=== PATIENT | female | born 1990 | race Caucasian/White ===

== ENCOUNTER 2022-03-14 23:22 | Inpatient (IN) | payer BC ==
[~2022-03-14] VITALS: Ht 157.5 cm; Wt 74.8 kg
--- NOTE | 2022-03-15 03:30 | NUR ---
COVID 19 SWAB DONE TO BOTH NARES AND SENT TO IN HOUSE LAB.
--- NOTE | 2022-03-15 12:49 | PR ---
[facility] [address] [facility] [place] [facility] [place], [place] [address] Signed Progress Notes IP Datetime Report Generated by CPN: 03/15/2022 12:49 PROGRESS NOTES: [id number] Impression: Normal Progression of Labor; Reassuring Heart Rate Other Procedures: AROM residual bag Plan: Continue Present Management VITAL SIGNS: [id number] Vital Signs: Reviewed; Within Normal Limits EXAM: [id number] Dilatation: 4.0 Effacement: 80 Station: -2 Contractions: irregular MEMBRANES: [id number] Pooling: Positive Membranes Status: Ruptured Comments: Comfortable with epidural Minimal progression with pitocin head well-applied following amniotomy Continue low-dose pitocin FETUS A: [id number] FHR Baseline: 135 Variability: Moderate 6-25bpm Accelerations: 15X15 Decelerations: None FHR Category: Category I Comments on Fetus A: No evidence of acidemia FETUS B: [id number] Signing Physician: Jeremy Leos DO Copies: ~ *Electronically Signed* 03/15/22 1249 JEREMY LEOS DO PATIENT NAME: PJ DENNIS YULISSA PROGRESS NOTE DATE OF : 89 PHYSICIAN: JEREMY LEOS DO RPT #: [id number] REPORT IS CONFIDENTIAL AND NOT TO BE RELEASED WITHOUT AUTHORIZATION
--- NOTE | 2022-03-16 13:02 | PR ---
[facility] [address] [facility] [place] [address] Signed PP Progress Notes Datetime Report Generated by CPN: 03/16/2022 13:02 SUBJECTIVE: [id number] Pain: Within Normal Limits Nausea/Vomiting: Denies Vital Signs: [id number] Vital Signs: Reviewed; Within Normal Limits Notable Details: PP Hgb/Hct = 10.2/31.2 EXAM: Ongoing Abdomen/Uterus: Normal Lochia: Normal Extremities: Normal IMPRESSION/PLAN/PROCEDURES: [id number] Impression: Normal Progression Plan: Discharge Procedures: None Progress Notes: Doing well, without complaint, ready to go home. Signing Physician: Toney French MD Copies: ~ *Electronically Signed* 03/16/22 1302 TONEY FRENCH MD PATIENT NAME: PJ DENNIS PROGRESS NOTE DATE OF : [birth year] PHYSICIAN: TONEY FRENCH MD RPT #: [id number] REPORT IS CONFIDENTIAL AND NOT TO BE RELEASED WITHOUT AUTHORIZATION
== END 2022-03-16 23:46 | disposition home or self-care (01) | DRG 807 ==
LOC: FBCO 23:22 → FBC 03-15 00:32
PROVIDERS: ADMIT Obstetrics & Gynecology; ATTEND Obstetrics & Gynecology
PROC: 10E0XZZ Delivery of Products of Conception, External Approach (ICD-10-PCS; principal; 2022-03-15)
PROC: 10907ZC Drainage of Amniotic Fluid, Therapeutic from Products of Conception, Via Natural or Artificial Opening (ICD-10-PCS; 2022-03-15)
PROC: 3E0R3BZ Introduction of Anesthetic Agent into Spinal Canal, Percutaneous Approach (ICD-10-PCS; 2022-03-15)
PROC: 00HU33Z Insertion of Infusion Device into Spinal Canal, Percutaneous Approach (ICD-10-PCS; 2022-03-15)
PROC: 0UQMXZZ Repair Vulva, External Approach (ICD-10-PCS; 2022-03-15)
DX: O42.02 Full-term premature rupture of membranes, onset of labor within 24 hours of rupture (principal); Z37.0 Single live birth; O76 Abnormality in fetal heart rate and rhythm complicating labor and delivery; O69.1XX0 Labor and delivery complicated by cord around neck, with compression, not applicable or unspecified; O71.82 Other specified trauma to perineum and vulva; Z79.899 Other long term (current) drug therapy; Z20.822 Contact with and (suspected) exposure to COVID-19; Z3A.38 38 weeks gestation of pregnancy
CPT/HCPCS: 01960; 36415; 84112; 85027; 86850; 86900; 86901; 87502; A9270; C9803; J2590; J7121; U0003

== ENCOUNTER 2022-06-20 08:00 | Day surgery (SDC) | payer BC ==
[~2022-06-20] VITALS: Ht 157.5 cm; Wt 65.9 kg
[~2022-06-20 08:00] MED LIST: PRENATAL TABLE1 EAC3 PO
--- NOTE | 2022-06-20 12:38 | NUR ---
06/20/22 Bc8 Michell Moore 1223- PT ARRIVES TO PACU AWAKE AND TALKING. PT REPORTS NO PAIN OR NAUSEA. RESP EVEN AND UNLABORED. OXYGEN SAT HIGH 90'S TO 100% ON 2L VIA CO2 NC. PT REPORTS SHE FEELS LIKE SHE HAS TO "PEE", ASKED PT IF SHE WANTS A BED VICTORIA. PT STATES SHE WOULD LIKE TO GET UP. PT IS UNABLE TO GET UP AT THIS TIME SHE IS UNABLE TO KEEP HER EYES OPEN. PT STATES SHE WILL WAIT. 1224- DR. HERBERT AT THE BEDSIDE TO TALK WITH THE PT. 1229- OXYGEN TITRATED OFF. 1233- PT'S CALLED AND UPDATED PER PT REQUEST.
--- NOTE | 2022-06-20 13:25 | NUR ---
1300: PATIENT BACK IN DAY SURGERY ROOM FROM PACU. PATIENT DROWSY, BUT AWAKENS EASILY TO VOICE. PERIPAD IN PLACE WITH SMALL AMOUNT OF RED DRAINAGE. ICE PACK TO PERINEUM. VS CHECKED. IV SITE WNL. SCDs ON. CALL LIGHT WITHIN REACH. 1320: PATIENT REQUESTS TO GET UP TO VOID. PATIENT ASSISTED TO BATHROOM. GAIT SLIGHTLY UNSTEADY. PATIENT UNABLE TO VOID AT THIS TIME. PATIENT ASSISTED BACK TO ROOM AND BED. DR. HERBERT IN TO SPEAK WITH PATIENT. SCDs REPLACED. CALL LIGHT WITHIN REACH.
--- NOTE | 2022-06-20 15:32 | NUR ---
PATIENT ASSISTED UP TO BATHROOM. GAIT STEADY. HALI BOTTLE GIVEN TO PATIENT TO USE IN BATHROOM PER PATIENT REQUEST. SMALL AMOUNT OF RED DRAINAGE ON PERIPAD.
--- NOTE | 2022-06-20 16:03 | NUR ---
1545: PATIENT ASSISTED BACK TO ROOM. UNABLE TO VOID AT THIS TIME. DENIES FEELING THAT BLADDER IS FULL. GAIT STEADY. PATIENT C/O NAUSEA. ICE PACK REFILLED. 1555: PATIENT HAD EPISODE OF EMESIS. STATES NAUSEA BETTER AFTER EMESIS. OFFERED ANTI-NAUSEA MEDICATION. PATIENT DECLINED AT THIS TIME. CALL LIGHT WITHIN REACH.
--- NOTE | 2022-06-20 16:09 | NUR ---
1605: PATIENT REQUESTED IBUPROFEN FOR PAIN. PATIENT UNABLE TO HAVE IBUPROFEN AT THIS TIME DUE TO EARLIER TORADOL ADMIN. DR. HERBERT CALLED BY OTHER NURSE. ORDER RECEIVED FOR IV TYLENOL.
--- NOTE | 2022-06-20 16:17 | NUR ---
STAND BY ASSIST TO BATHROOM TO TRY AND VOID. GAIT STEADY. DR. HERBERT UPDATED ON PATIENT STATUS.
--- NOTE | 2022-06-20 16:35 | NUR ---
PATIENT ABLE TO VOID APPROXIMATELY 125 ML. SMALL AMOUNT OF BLOODY DRAINAGE WITH VOIDING. GAIT STEADY BACK TO ROOM. IV OFIRMEV INFUSION STARTED. CALL LIGHT WITHIN REACH. HER WITH KIDS. PATIENT BABY.
--- NOTE | 2022-06-20 17:38 | NUR ---
LE 1702 PATIENT ALERT AND ORIENTED. BREATHING EQUAL AND UNLABORED. OXYGEN SATURATIONS ABOVE 95% ON ROOM AIR. PATIENT COMPLAINS OF 2/10 PAIN AT SURGICAL SITE STATING IT IS TOLERABLE. PATIENT STATES SHE FEELS NAUSEATED BUT IT IS TOLERABLE. IVF INFUSING. SCD'S ON. PATIENT WAITING FOR DR. HERBERT. FAMILY PRESENT AT BEDSIDE. CALL LIGHT WITHIN REACH NO FUTHER NEEDS NO QUESTIONS AT THIS TIME. LE 1710 DR. HERBERT AT BEDSIDE. DR. HERBERT REMOVED PACKING FROM VAGINAL AREA. PATIENT BLEEDING CONTROLLED AND SMALL AMOUNT. PATIENT HAS MET DISCHARGE CRTIERIA.
--- NOTE | 2022-06-20 17:41 | NUR ---
LE 1723 PATIENT HAD 600 MLS OF EMESIS. PRN PHENERGAN GIVEN. DR. HERBERT NOTIFIED. LE 1735 PATIENT FEELING BETTER. PATIENT ABLE TO DRESS SELF AND TOLERATED IT WELL. PATIENT WAS WHEELED OUT OF FACILITY TO PRIVATE AUTO WITH . NO QUESTIONS AND NO FUTHER NEEDS.
--- NOTE | 2022-06-20 17:44 | NUR ---
LE 1744 NOTIFIED PHARMACY OF WRONG DOCUMENTATION OF PHENERGAN 6.25 MG. UNABLE TO FIX IN DOCUMENTATION DUE TO PATIENT BEING DISCHARGED.
--- NOTE | 2022-06-25 13:19 | PATH ---
[facility] [address] [place], [place] [address] Signed SPECIMEN(S): A PERINEAL CYST MIDLINE SPECIMEN SOURCE: A. PERINEAL CYST MIDLINE CLINICAL HISTORY: Hysteroscopy, DC. FINAL PATHOLOGIC DIAGNOSIS: Perineal cyst midline: - Benign soft tissue and squamous epithelium with focal granulation tissue and histiocytes consistent with clinical cyst. JVR:ethel:C2NR MICROSCOPIC EXAMINATION: Histologic sections of all submitted blocks are examined by light microscopy. These findings, together with the gross examination, support the pathologic diagnosis. GROSS DESCRIPTION: The specimen, labeled "Morgan Dennis," and designated on the requisition "perineal cyst," is received in formalin and consists of a 2.8 x 1.5 x 0.9 cm, pink, roughened tissue fragment. The specimen is sectioned and entirely submitted in cassette (A1). FB (under the direct supervision of a pathologist) The Gross Description was prepared using a voice recognition system. The report was reviewed for accuracy; however, sound-alike word errors, addition and/or deletions may occur. If there is any question about this report, please contact Client Services. PERFORMING LABORATORY: The technical component was performed by [facility], [address] [place] [id number] (CLIA# [id number]). Professional interpretation was performed by [facility], [address] [place] [id number] (CLIA#: [id number]). Diagnostician: Gonzalo Hager MD Pathologist Electronically Signed 06/25/2022 PATIENT NAME: MORGAN DENNIS PATHOLOGY DATE OF : [birth year] REPORT #: [id number] PHYSICIAN: ANJELICA PATHOLOGY PCP: PETR EDMOND MD REPORT IS CONFIDENTIAL AND NOT TO BE RELEASED WITHOUT AUTHORIZATION [address] [place], [place] [address] Signed Copies: ~ PATIENT NAME: MORGAN DENNIS PATHOLOGY DATE OF : [birth year] REPORT #: [id number] PHYSICIAN: ANJELICA PATHOLOGY PCP: PETR EDMOND MD REPORT IS CONFIDENTIAL AND NOT TO BE RELEASED WITHOUT AUTHORIZATION
--- NOTE | 2022-09-05 18:16 | OR ---
[address] [address] Signed DATE OF OPERATION: 06/20/2022 SURGEON: Jun Guerrero DO PREOPERATIVE DIAGNOSES: 1. Perineal cyst. 2. Dyspareunia secondary to perineal cyst. 3. Pathologic scarring from obstetrical laceration. POSTOPERATIVE DIAGNOSES: 1. Perineal cyst. 2. Dyspareunia secondary to perineal cyst. 3. Pathologic scarring from obstetrical laceration. PROCEDURES PERFORMED: 1. Excision of perineal cyst. 2. Perineorrhaphy. 3. Revision of obstetric laceration. ESTIMATED BLOOD LOSS: 100 mL. SPECIMEN: Cyst contents and perineal cyst. COMPLICATIONS: None. PACKING: Vaginal packing, Kerlix impregnated with Premarin. HOSPITAL NURSE: Leslie Leos DO COMPLICATIONS: None. INDICATIONS: Ms. 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 She also had a right periurethral obstetrical laceration that had pathologic healing with a bridge of tissue that is catching with hygiene products and intimacy. The patient was consented for excision of perineal cyst and revision of obstetrical laceration. Risks, benefits, and alternatives were discussed in detail with the patient. The patient understands and wished to proceed with the procedure. TECHNIQUE: The patient was taken to the operating room where a time-out was performed to confirm correct patient and correct procedure. Anesthesia was adequately established and the patient was prepped in the dorsal lithotomy position with her feet in Yellofin stirrups. Surgical prep was applied and 3 minutes were waited for adequate drying at which time, the patient was draped in the normal fashion. No preoperative antibiotics or heparin were indicated. The bladder was drained and attention was turned to repair of periurethral obstetrical laceration. The bridge of tissue was divided sharply using clamps and Metzenbaum scissors. Each end was cut flush to the surrounding vaginal epithelium and repaired using 3-0 Vicryl Rapide with excellent hemostasis and cosmesis appreciated. The area was infiltrated with 0.25% Marcaine with epinephrine prior to incision. Attention was then turned to perineal cyst. The edges of the introitus were grasped with Allis clamps and perineorrhaphy was cut using a surgical scalpel after infiltration with 0.25% Marcaine with epinephrine. The vaginal epithelium was elevated and divided bluntly from the perineal body and the rectum mobilizing the perineal cysts. The cyst did grow deep into the perineal body and careful excision was performed using blunt and sharp dissection. The cyst did rupture during the excisional procedure for small amount of honey mustard appearing cyst contents. These were sent to pathology for further evaluation. The remainder of the cyst was completely excised including all portions of the cyst wall and sent to pathology for further evaluation. The perineal body was repaired deeply with 0 Vicryl in interrupted sutures. The vaginal epithelium was then reapproximated using 2-0 Vicryl in a running locked manner to the introitus. The remainder of the perineorrhaphy was closed in a standard fashion using 2-0 Vicryl with excellent hemostasis and cosmesis appreciated. The vagina was then packed with Premarin impregnated Kerlix and Dumont catheter was inserted. The patient was then taken to PACU in good and stable condition. Flomax was applied to the rectovaginal space prior to vaginal closure. The patient was then taken to PACU in good and stable condition. Sponge, needle, and instrument count was correct x2 at the end of the procedure. Dr. Leos was present and participated in all portions of the procedure. Electronically Signed By: JUN GUERRERO DO (JD) 09/05/22 1816 PATIENT NAME: PJ DENNIS OPERATIVE REPORT DATE OF : [birth year] REPORT #: [id number] PHYSICIAN: JUN GUERRERO DO (JD) PCP: PETR EDMOND MD REPORT IS CONFIDENTIAL AND NOT TO BE RELEASED WITHOUT AUTHORIZATION [facility] [address] [place] [address] Margarita Cedeño [address] Signed Jun Guerrero DO JDW/MODL /[id number] Copies: ~ Electronically Signed By: JUN GUERRERO DO (JD) 09/05/22 1816 PATIENT NAME: PJ DENNIS OPERATIVE REPORT DATE OF : [birth year] REPORT #: [id number] PHYSICIAN: JUN GUERRERO DO (JD) PCP: PETR EDMOND MD REPORT IS CONFIDENTIAL AND NOT TO BE RELEASED WITHOUT AUTHORIZATION
== END 2022-06-20 17:35 | disposition home or self-care (01) ==
LOC: DS 08:00
PROVIDERS: ATTEND Obstetrics & Gynecology
PROC: 0JBB0ZZ Excision of Perineum Subcutaneous Tissue and Fascia, Open Approach (ICD-10-PCS; principal; 2022-06-20 11:00)
DX: N90.89 Other specified noninflammatory disorders of vulva and perineum (principal); N94.19 Other specified dyspareunia; N93.9 Abnormal uterine and vaginal bleeding, unspecified
CPT/HCPCS: J0131; J1170; J1885; J2001; J2250; J2405; J2550; J2704; J3010; J7121